=== PATIENT | female | born 1985 | race Caucasian/White ===

== ENCOUNTER 2018-11-19 17:15 | Observation (INO) | payer OTHER ==
[2018-11-19] MEDS: RINGERS SOLUTION,LACTATED 1,000 ML IV SCH ×2 (18:30→18:31)
[2018-11-19 19:48] VITALS: BP 116/59
== END 2018-11-19 19:40 | disposition home or self-care (01) ==
LOC: 4S 17:15
PROVIDERS: ADMIT Obstetrics & Gynecology; ATTEND Obstetrics & Gynecology
DX: O41.03X0 Oligohydramnios, third trimester, not applicable or unspecified (principal); Z3A.38 38 weeks gestation of pregnancy
CPT/HCPCS: 81002; G0378; J7120

== ENCOUNTER 2018-11-21 17:15 | Inpatient (IN) | payer OTHER ==
[~2018-11-21] VITALS: Ht 157.5 cm; Wt 67.1 kg
[2018-11-21] MEDS ORDERED: RINGERS SOLUTION,LACTATED 1,000 ML IV PRN (17:24)
[2018-11-21] MEDS ORDERED: METOCLOPRAMIDE HCL 5 MG/ML 2 ML VIAL IVP PRN (17:30)
[2018-11-21] MEDS ORDERED: FentaNYL CITRATE-PF 100 MCG/2 ML VIAL IVP PRN (17:30)
[2018-11-21] MEDS ORDERED: CITRIC ACID/SODIUM CITRATE 30 ML SOLUTION UDCUP PO PRN (17:30)
[2018-11-21 18:36] LABS: BASOPHILS % (AUTO) 0.2 % (0.0-2.0); EOSINOPHILS % (AUTO) 0.2 % (1.0-6.0); HEMATOCRIT 34.8 % (36-46); HEMOGLOBIN 11.8 g/dL (12.0-16.0); LYMPHOCYTES # (AUTO) 2.2 K/uL (1.0-4.8); LYMPHOCYTES % (AUTO) 19.8 % (22.0-44.0); MEAN CORPUSCULAR HEMOGLOBIN 30.3 pg (26.0-34.0); MEAN CORPUSCULAR HGB CONC 33.8 G/dL (31.0-37.0); MEAN CORPUSCULAR VOLUME 89 fL (80-100); MONOCYTES # (AUTO) 0.7 K/uL (0.1-1.0); MONOCYTES % (AUTO) 6.6 % (2.0-9.0); NEUTROPHILS # (AUTO) 8.2 K/uL (1.8-7.7); NEUTROPHILS % (AUTO) 73.2 % (40.0-70.0); PLATELET COUNT (AUTO) 198 K/uL (150-450); RED CELL DISTRIBUTION WIDTH 14.3 % (11.5-14.5)
[2018-11-21] MEDS ORDERED: DINOPROSTONE 10 MG VAGINAL SUPPOSITORY VG ONE (20:30)
[2018-11-21] MEDS: RINGERS SOLUTION,LACTATED 1,000 ML IV SCH (21:28)
[2018-11-22] MEDS: GENTAMICIN 120 MG/NACL ISO-OSM 100 ML IV SCH ×2 (03:15→11:35)
[2018-11-22] MEDS: AMPICILLIN SODIUM 2 GM/NS 100 ML IV SCH ×2 (03:46→09:56)
[2018-11-22 05:44] VITALS: BP 110/72
[2018-11-22] MEDS ORDERED: LIDOCAINE/PF 2% 5 ML VIAL ONE (06:16)
[2018-11-22] MEDS ORDERED: ROPIVACAINE HCL/PF 0.2% 100 ML ED ONE (06:16)
[2018-11-22] MEDS ORDERED: ROPIVACAINE HCL/PF 0.2% 100 ML ED PRN (06:45)
[2018-11-22] MEDS ORDERED: NALBUPHINE HCL 10 MG/ML VIAL IVP PRN (06:45)
[2018-11-22] MEDS ORDERED: DiphenhydrAMINE HCL 50 MG/ML VIAL IVP PRN (06:45)
[2018-11-22] MEDS ORDERED: ONDANSETRON HCL 4 MG/2 ML VIAL IVP PRN (06:45)
[2018-11-22] MEDS: OXYTOCIN 30 UNITS/LACT RINGERS 500 ML IV PRN ×2 (06:53→12:12)
[2018-11-22] MEDS ORDERED: -PHARMACY NOTE- MISC ONE (08:30)
[2018-11-22] MEDS: RINGERS SOLUTION,LACTATED 1,000 ML IV SCH (09:57)
[2018-11-22] MEDS ORDERED: BENZOCAINE 20%/MENTHOL 56 GM SPRAY CANISTER TP PRN (17:00)
[2018-11-22] MEDS ORDERED: LANOLIN 7 GM OINTMENT TP PRN (17:00)
[2018-11-22] MEDS ORDERED: ACETAMINOPHEN/CODEINE 300-30 MG TABLET PO PRN ×2 (17:00)
[2018-11-22] MEDS ORDERED: GLYCERIN/WITCH HAZEL LEAF 40 PADS JAR TP PRN (17:00)
[2018-11-22] MEDS: IBUPROFEN 800 MG TABLET PO SCH (17:54)
[2018-11-22] MEDS ORDERED: MAGNESIUM HYDROXIDE SUSPENSION 30 ML UDCUP PO SCH (21:00)
[2018-11-23] MEDS: IBUPROFEN 800 MG TABLET PO SCH ×3 (00:02→12:46)
[2018-11-23] MEDS ORDERED: SENNA/DOCUSATE SODIUM 8.6-50 MG TABLET PO ONE (12:30)
[2018-11-23] MEDS ORDERED: IBUP-2071 PO (14:02)
== END 2018-11-23 16:35 | disposition home or self-care (01) | DRG 768 ==
LOC: OBSVTOIN 17:15 → 4S 17:15
PROVIDERS: ADMIT Obstetrics & Gynecology; ATTEND Obstetrics & Gynecology
PROC: 10E0XZZ Delivery of Products of Conception, External Approach (ICD-10-PCS; principal; 2018-11-22)
PROC: 0DQR0ZZ Repair Anal Sphincter, Open Approach (ICD-10-PCS; 2018-11-22)
PROC: 0W8NXZZ Division of Female Perineum, External Approach (ICD-10-PCS; 2018-11-22)
PROC: 3E0R3BZ Introduction of Anesthetic Agent into Spinal Canal, Percutaneous Approach (ICD-10-PCS; 2018-11-22)
PROC: 00HU33Z Insertion of Infusion Device into Spinal Canal, Percutaneous Approach (ICD-10-PCS; 2018-11-22)
DX: O41.03X0 Oligohydramnios, third trimester, not applicable or unspecified (principal); Z37.0 Single live birth; O70.1 Second degree perineal laceration during delivery; Z3A.38 38 weeks gestation of pregnancy
CPT/HCPCS: 86850; 86900; 86901; J0290; J1580; J2590; J2795; J3490; J7120